=== PATIENT | female | born 1945 | race Caucasian/White ===

== ENCOUNTER 2019-08-23 21:39 | Emergency (ER) | payer MEDICARE, OTHER ==
[~2019-08-23] VITALS: Ht 152.4 cm; Wt 90.9 kg
[~2019-08-23 21:39] MED LIST: ASPI-1265 PO; ATOR40TA PO; BACL10TA PO; CALC-212 PO; CHOL100017 PO; ESCI20TA45 PO; FENT1PAT13 TP; HYDR1LIQ5 PO; LISI40TA4 PO; PROM12.512 PO
[2019-08-23] MEDS ORDERED: HYDROcodone/acetaminophen 10/325mg tab PO ONE (22:05)
[2019-08-23] MEDS ORDERED: ondansetron 4mg rapidly disintigrating tab PO ONE (22:05)
[2019-08-23] MEDS ORDERED: HYDR-4353 PO (22:16)
[2019-08-23] MEDS ORDERED: ONDA4TAB6 PO (22:16)
[2019-08-23 23:03] VITALS: BP 172/82
== END 2019-08-23 23:06 | disposition home or self-care (01) ==
LOC: ER 21:40
DX: S42.401A Unspecified fracture of lower end of right humerus, initial encounter for closed fracture (principal); Z86.14 Personal history of Methicillin resistant Staphylococcus aureus infection; Z88.8 Allergy status to other drugs, medicaments and biological substances; Z79.82 Long term (current) use of aspirin; Z79.899 Other long term (current) drug therapy; W18.30XA Fall on same level, unspecified, initial encounter; Y93.89 Activity, other specified; Y92.89 Other specified places as the place of occurrence of the external cause; Y99.8 Other external cause status
CPT/HCPCS: 29105; 73030; 99284

== ENCOUNTER 2019-09-02 06:56 | Inpatient (IN) | payer MEDICARE, OTHER ==
--- NOTE | 2019-08-30 09:55 | NUR ---
PT AND BOTH PRE-OP"D DUE TO PT'S FORGETFULNESS. VERBAL COVID SCREEN DONE WITH BOTH AND THEY WERE NEGATIVE TO ALL QUESTIONS. INSTRUCTED BOTH TO QUARANTINE MUCH POSSIBLE UNTIL SURG. WEAR A MASK, WASH HANDS AND SOCIAL DISTANCE IF NEED TO GO OUT
[2019-08-30 09:56] LABS: BASOPHILS % (AUTO) 0.5 % (0-1); EOSINOPHILS # (AUTO) 0.3 X10'3 (0-0.9); EOSINOPHILS % (AUTO) 4.5 % (0-6); LYMPHOCYTES # (AUTO) 1.6 X10'3 (1.1-4.8); LYMPHOCYTES % (AUTO) 20.6 % (21-51); MEAN CORPUSCULAR HEMOGLOBIN 31.7 PG (27.0-31.0); MEAN CORPUSCULAR HGB CONC 33.3 g/dL (33.0-36.5); MEAN CORPUSCULAR VOLUME 95.1 FL (78-98); MONOCYTES # (AUTO) 0.7 X10'3 (0-0.9); MONOCYTES % (AUTO) 9.2 % (2-12); NEUTROPHILS # (AUTO) 4.9 X10'3 (1.8-7.7); NEUTROPHILS % (AUTO) 65.2 % (42-75); PRE OP HEMATOCRIT 33.5 % (35.0-45.0); PRE OP HEMOGLOBIN 11.2 g/dL (12.0-16.0); PRE OP PLATELET COUNT 229 X10'3 (140-440); RED BLOOD COUNT 3.53 X10'6 (4.20-5.60); RED CELL DISTRIBUTION WIDTH 15.3 % (11.5-14.5)
[2019-08-30 10:18] LABS: PRE OP PROTIME 9.9 SECONDS (9.0-12.0)
[2019-08-30 10:34] LABS: ALBUMIN 2.8 G/DL (3.4-5.0); ALBUMIN/GLOBULIN RATIO 0.8 (1.1-1.5); ALKALINE PHOSPHATASE 99 IU/L (46-116); BLOOD UREA NITROGEN 23 MG/DL (7-18); BUN/CREATININE RATIO 24.5 (6.6-38.0); CALCIUM 8.6 MG/DL (8.5-10.1); CHLORIDE 103 MMOL/L (99-107); CREATININE 0.94 MG/DL (0.40-0.90); PRE OP ALT 28 U/L (30-65); PRE OP ANION GAP 2 (8-16); PRE OP AST 21 U/L (10-37); PRE OP BILIRUB, TOTAL 0.4 MG/DL (0.0-1.0); PRE OP GLUCOSE 106 MG/DL (70-104); PRE OP POTASSIUM 4.1 MMOL/L (3.4-5.1); PRE OP SODIUM 139 MMOL/L (135-145); TOTAL CARBON DIOXIDE 34.3 MMOL/L (24-32); TOTAL PROTEIN 6.5 G/DL (6.4-8.2); eGFR 59 ML/MIN
[~2019-09-02] VITALS: Ht 152.4 cm; Wt 96.0 kg
[2019-09-02] VITALS (22 sets, daily range): BP systolic 116–178; BP diastolic 56–157
[~2019-09-02 06:56] MED LIST changes: -CALC-212 PO; +FENT1PAT11 TOP; +FREM225S SQ; -HYDR1LIQ5 PO; +HYDR8TAB18 PO; +KEN0.1O TOP; -LISI40TA4 PO; +OMEP40CA13 PO; +ONDA4TAB6 PO; +SUMA100T16 PO; +ceFAZolin 2gm in dextrose, iso 50 ML IV ONE; +famotidine 20mg tablet PO ONE; +ringers solution, lacted 1,000 ML IV SCH; +tranexamic acid inj. 900 MG in normal saline 100ml IV soln 91 ML IV ONE; +vancomycin 1,500 MG in NS 300ml IV soln IV ONE
--- NOTE | 2019-09-02 08:00 | NUR ---
PT C/O LEFT KNEE/CALF PAIN. BRUISE NOTED ON LEFT KNEE WITH LEFT KNEE/CALF SWELLING AND TENDERNESS. SCD NOT APPLIED TO LEFT LE AT THIS TIME R/T CALF PAIN/SWELLING, SENT WITH PT TO THE OR. DR TOBIN NOTIFIED BY RN, NO NEW ORDERS. Addendum: 09/02/19 at 1329 by Marjan Pryor RN Amended: Links added.
[2019-09-02] MEDS ORDERED: glycopyrrolate 0.2mg/ml inj ONE (09:02)
[2019-09-02] MEDS ORDERED: sevoflurane 250ml liquid IH ONE (09:02)
[2019-09-02] MEDS ORDERED: ePHEDrine 50MG/ML INJ. ONE (09:02)
[2019-09-02] MEDS ORDERED: neostigmine methylsulfate 1 MG/ML 10ml vial ONE (09:02)
[2019-09-02] MEDS ORDERED: midazolam 2 mg/2 ml injection ONE (09:37)
[2019-09-02] MEDS ORDERED: fentaNYL/PF 50MCG/1 ML 2ML syringe ONE ×2 (09:37→10:58)
[2019-09-02] MEDS ORDERED: ROPIVAcaine 0.5% (5mg/ml) 30ml vial ONE ×2 (10:53→11:54)
[2019-09-02] MEDS ORDERED: LIDOcaine 1%/PF 5ML 10 MG/ML VIAL ONE (11:54)
[2019-09-02] MEDS ORDERED: ondansetron/PF 4mg/2ml inj ONE (11:54)
[2019-09-02] MEDS ORDERED: dexamethasone sod phosphate 4mg/ml inj. ONE (11:54)
[2019-09-02] MEDS ORDERED: propofol inj 20 ML IV ONE (11:54)
[2019-09-02] MEDS ORDERED: ketamine 50mg/5ml syringe ONE (11:55)
[2019-09-02] MEDS ORDERED: ondansetron/PF 4mg/2ml inj IV PRN ×2 (12:05→12:35)
[2019-09-02] MEDS ORDERED: HYDROmorphone inj. 0.5 MG/0.5 ML DISP.SYRIN IV PRN ×2 (12:05→12:35)
[2019-09-02] MEDS ORDERED: ringers solution, lacted 1,000 ML IV SCH (12:05)
--- NOTE | 2019-09-02 12:17 | NUR ---
Received from OR via ortho bed, accompanied by Anesthesiologist DR Schmidt and report given by Anesthesiolgist. PATIENT WAKING UP, extubated by MD at bedside, too sleepy to answer questions but all V/S WNL, O2 sats 97% mask to 10L O2, NEUROVASCULAR CHECKS INTACT, 20G left forearm, island dressing shoulder wrap and cold pack to right shoulder. SCDs on no aquino cath. IVF LR at 100cc/hr.
[2019-09-02] MEDS ORDERED: potassium cl 20mEq in 1/2 NS 1,000 ML IV SCH (12:34)
[2019-09-02] MEDS ORDERED: magnesium hydroxide 30ml (MOM) UD suspension PO PRN (12:35)
[2019-09-02] MEDS ORDERED: bisacodyl 10mg suppository rectal RC PRN (12:35)
[2019-09-02] MEDS ORDERED: oxyCODONE IR 5mg (immed. release) tablet PO PRN (12:35)
[2019-09-02] MEDS ORDERED: HYDROmorphone 2mg tablet PO PRN (12:35)
[2019-09-02] MEDS ORDERED: baclofen 10mg tablet PO PRN (12:35)
[2019-09-02] MEDS ORDERED: acetaminophen 325mg tablet PO PRN (12:35)
[2019-09-02] MEDS ORDERED: diphenhydrAMINE 25mg capsule PO PRN ×2 (12:35)
[2019-09-02] MEDS ORDERED: fentaNYL 75 MCG/hour patch.TD72 TD SCH ×2 (12:35→13:06)
[2019-09-02] MEDS ORDERED: hydrALAZINE 20mg/ml inj. IV ONE (12:45)
[2019-09-02] MEDS ORDERED: acetaminophen 1,000mg/100ml IV 100 ML IV ONE (12:45)
[2019-09-02] MEDS ORDERED: labetalol 20mg/4ml (5mg/ml) syringe IV ONE (12:45)
[2019-09-02] MEDS: morphine 2 MG/ML inj. syringe IV PRN ×3 (12:46→13:23)
[2019-09-02] MEDS: HYDROmorphone inj. 0.5 MG/0.5 ML DISP.SYRIN IV PRN ×3 (12:50→13:35)
[2019-09-02] MEDS ORDERED: fentaNYL/PF 50MCG/1 ML 2ML syringe IV ONE (13:20)
[2019-09-02] MEDS ORDERED: ondansetron 4mg rapidly disintigrating tab PO PRN (14:00)
--- NOTE | 2019-09-02 14:01 | NUR ---
Patient in room PAS IN 900. I have received report from Diana ALEGRIA and had the opportunity to ask questions and assume patient care.
--- NOTE | 2019-09-02 14:17 | NUR ---
Report called to receiving nurse. Transferred via ortho bed. Belongings sent with patient in one bag, dentures upper and lower in mouth and glasses on. Special Issues communicated to receiving nurse Bethanie RN on phone. Pt voided prior to transfer. Post op VS stable in room,. BLL eula light within reach chart at bedside. Charge nurse informed of PAS nurse's conversation with Dr Geller regarding bruised knee swelling and tenderness to left lower extrem but no new orders received. SCD only on right leg.
[2019-09-02] MEDS: proMETHazine 25mg tablet PO SCH ×3 (14:56→21:04)
[2019-09-02] MEDS: oxyCODONE IR 5mg (immed. release) tablet PO PRN (14:57)
[2019-09-02] MEDS: acetaminophen 325mg tablet PO SCH ×3 (14:57→21:03)
[2019-09-02] MEDS ORDERED: tranexamic acid inj. 900 MG in normal saline 100ml IV soln 100 ML IV ONE (15:30)
[2019-09-02] MEDS: ceFAZolin 1GM/D5W- ADD-VANTAGE 50 ML IV SCH ×2 (15:50→23:46)
[2019-09-02] MEDS: HYDROmorphone 1 mg/ml syringe IV PRN (16:15)
--- NOTE | 2019-09-02 18:48 | NUR ---
Problems reprioritized. Patient report given, questions answered & plan of care reviewed with Katerine ALEGRIA.
[2019-09-02] MEDS: ESCITALOPRAM OXALATE 5 MG TABLET PO SCH ×2 (20:00→21:03)
[2019-09-02] MEDS ORDERED: vancomycin/NS 1 GM ADD-VANTAGE 250 ML IV SCH (20:00)
[2019-09-02] MEDS: nystatin 15 GM powder TP SCH ×2 (20:36→21:00)
[2019-09-02] MEDS: sennosides 8.6mg tablet PO SCH ×2 (20:36→21:04)
[2019-09-02] MEDS: atorvastatin 20mg tablet PO SCH ×2 (20:36→21:03)
[2019-09-03] MEDS: oxyCODONE IR 5mg (immed. release) tablet PO PRN ×2 (00:33→09:18)
[2019-09-03 02:00] VITALS: BP 136/63
[2019-09-03] MEDS: acetaminophen 325mg tablet PO SCH ×2 (02:00→08:00)
[2019-09-03] MEDS: proMETHazine 25mg tablet PO SCH ×2 (02:00→09:19)
[2019-09-03 05:54] LABS: BASOPHILS % (AUTO) 0.2 % (0-1); EOSINOPHILS % (AUTO) 0.1 % (0-6); HEMATOCRIT 30.9 % (35.0-45.0); HEMOGLOBIN 10.3 g/dl (12.0-16.0); LYMPHOCYTES # (AUTO) 1.2 X10'3 (1.1-4.8); MEAN CORPUSCULAR HEMOGLOBIN 31.7 PG (27.0-31.0); MEAN CORPUSCULAR HGB CONC 33.4 g/dL (33.0-36.5); MEAN CORPUSCULAR VOLUME 94.8 FL (78-98); MEAN PLATELET VOLUME 7.1 FL (7.4-10.4); MONOCYTES # (AUTO) 0.7 X10'3 (0-0.9); MONOCYTES % (AUTO) 7.4 % (2-12); NEUTROPHILS # (AUTO) 7.4 X10'3 (1.8-7.7); NEUTROPHILS % (AUTO) 79.3 % (42-75); PLATELET COUNT 228 X10'3 (140-440); RED BLOOD COUNT 3.26 X10'6 (4.20-5.60); RED CELL DISTRIBUTION WIDTH 15.4 % (11.5-14.5); WHITE BLOOD COUNT 9.3 X10'3 (4.5-11.0)
[2019-09-03 05:55] LABS: ANION GAP 6 (8-16); CHLORIDE 106 MMOL/L (99-107); POTASSIUM 4.1 MMOL/L (3.5-5.1); SODIUM 139 MMOL/L (135-145); TOTAL CARBON DIOXIDE 26.8 MMOL/L (24-32)
--- NOTE | 2019-09-03 06:09 | NUR ---
Patient in room ORTHO 4012. I have received report from Katerine ALEGRIA and had the opportunity to ask questions and assume patient care.
[2019-09-03 06:10] VITALS: BP 151/71
--- NOTE | 2019-09-03 06:23 | NUR ---
REport given to sparkle Kovacs.
[2019-09-03] MEDS ORDERED: HYDR-4353 PO (06:41)
[2019-09-03] MEDS: HYDROmorphone 1 mg/ml syringe IV PRN (06:49)
[2019-09-03] MEDS ORDERED: pantoprazole 40mg Tablet.DR PO SCH (07:30)
[2019-09-03] MEDS: nystatin 15 GM powder TP SCH (08:00)
[2019-09-03] MEDS ORDERED: vitamin D (cholecalciferol) 1,000 unit tablet PO SCH (08:00)
[2019-09-03] MEDS ORDERED: aspirin 325mg tablet PO SCH (08:30)
[2019-09-03] MEDS: ESCITALOPRAM OXALATE 5 MG TABLET PO SCH (09:18)
[2019-09-03 10:00] VITALS: BP 150/65
--- NOTE | 2019-09-03 10:45 | NUR ---
Patient discharged home at this time. Patient was provided ice packs and island dressings. She was taught all discharge instructions and had paper copy for norco prescription.
[2019-09-04] MEDS ORDERED: fentaNYL 75 MCG/hour patch.TD72 TD SCH (08:00)
[2019-09-04] MEDS ORDERED: acetaminophen 325mg tablet PO PRN (12:35)
== END 2019-09-03 10:35 | disposition home or self-care (01) | DRG 493 ==
LOC: UNDOADMIN 06:56 → PAS IN 06:56 → EDSTATUS 09:45 → PAS IN 12:34 → ORTHO 4S 14:15
PROVIDERS: ADMIT Orthopaedic Surgery; ATTEND Orthopaedic Surgery
PROC: 3E0T3BZ Introduction of Anesthetic Agent into Peripheral Nerves and Plexi, Percutaneous Approach (ICD-10-PCS; 2019-09-02)
PROC: 0PHC04Z Insertion of Internal Fixation Device into Right Humeral Head, Open Approach (ICD-10-PCS; principal; 2019-09-02 09:52)
DX: S42.211A Unspecified displaced fracture of surgical neck of right humerus, initial encounter for closed fracture (principal); D62 Acute posthemorrhagic anemia; S42.241A 4-part fracture of surgical neck of right humerus, initial encounter for closed fracture; G43.909 Migraine, unspecified, not intractable, without status migrainosus; M54.9 Dorsalgia, unspecified; F32.9 Major depressive disorder, single episode, unspecified; W18.39XA Other fall on same level, initial encounter; E78.5 Hyperlipidemia, unspecified; G89.29 Other chronic pain; K21.9 Gastro-esophageal reflux disease without esophagitis; I10 Essential (primary) hypertension; E66.9 Obesity, unspecified; Z88.8 Allergy status to other drugs, medicaments and biological substances; Z79.899 Other long term (current) drug therapy; Z79.82 Long term (current) use of aspirin; Y93.89 Activity, other specified; Y92.89 Other specified places as the place of occurrence of the external cause; Y99.8 Other external cause status
CPT/HCPCS: 36415; 73060; 73560; 73590; 76000; 80051; 80053; 82948; 85025; 85610; 85730; 87081; 93005; 97110; 97116; 97161; A4565; A4618; A6402; A7000; C1713; G0378; J0131; J0690; J1100; J1170; J2250; J2270; J2405; J2704; J2710; J2795; J3010; J3370; J3490; J7040; J7120; Q0169

== ENCOUNTER 2020-01-11 14:42 | Emergency (ER) | payer MEDICARE, OTHER ==
[~2020-01-11] VITALS: Ht 152.4 cm; Wt 95.0 kg
[~2020-01-11 14:42] MED LIST changes: -ceFAZolin 2gm in dextrose, iso 50 ML IV ONE; -famotidine 20mg tablet PO ONE; -ringers solution, lacted 1,000 ML IV SCH; -tranexamic acid inj. 900 MG in normal saline 100ml IV soln 91 ML IV ONE; -vancomycin 1,500 MG in NS 300ml IV soln IV ONE
[2020-01-11 15:32] VITALS: BP 164/70
== END 2020-01-11 15:42 | disposition home or self-care (01) ==
LOC: ER 14:42
DX: R05 Cough (principal); Z20.828 Contact with and (suspected) exposure to other viral communicable diseases; J02.9 Acute pharyngitis, unspecified; G43.909 Migraine, unspecified, not intractable, without status migrainosus; G89.29 Other chronic pain; Z98.890 Other specified postprocedural states; Z86.14 Personal history of Methicillin resistant Staphylococcus aureus infection; Z88.8 Allergy status to other drugs, medicaments and biological substances; Z79.82 Long term (current) use of aspirin; Z79.899 Other long term (current) drug therapy
CPT/HCPCS: 99281

== ENCOUNTER 2024-01-11 08:22 | Inpatient (IN) | payer BC, MEDICARE, OTHER ==
[2024-01-11] VITALS (19 sets, daily range): BP systolic 103–167; BP diastolic 50–99; PULSE 53–77; RESP 0–18; TEMP 97.4–98.1; O2SAT 90–99
[~2024-01-11] VITALS: Ht 152.4 cm; Wt 96.3 kg
[2024-01-11] MEDS: ceFAZolin 2gm in dextrose, iso 50 ML IV ONE (05:30)
[~2024-01-11 08:22] MED LIST changes: +ARIP5TAB53 PO; -ASPI-1265 PO; +CEPH500C2 PO; -CHOL100017 PO; +ESCI20TA39 PO; -ESCI20TA45 PO; -FENT1PAT13 TP; -FREM225S SQ; +GABA-530 PO; -KEN0.1O TOP; -OMEP40CA13 PO; +OMEP40CA21 PO; -ONDA4TAB6 PO; -PROM12.512 PO; +PROM25TA14 PO; -SUMA100T16 PO
[2024-01-11] MEDS ORDERED: bacitracin 15gm ointment TP ONE (08:51)
[2024-01-11] MEDS ORDERED: BUPIVAcaine 2.5mg/ml inj 50ml vial (contains preservative) ONE (08:52)
[2024-01-11] MEDS ORDERED: ASPI-1071 PO (09:28)
[2024-01-11] MEDS: famotidine 20mg tablet PO ONE (09:54)
[2024-01-11] MEDS: ringers solution, lacted 1,000 ML IV SCH (09:55)
[2024-01-11 10:01] LABS: BASOPHILS % (AUTO) 0.6 % (0-1); EOSINOPHILS # (AUTO) 0.2 X10'3 (0-0.9); EOSINOPHILS % (AUTO) 2.9 % (0-6); HEMATOCRIT 36.4 % (35.0-45.0); LYMPHOCYTES # (AUTO) 1.5 X10'3 (1.1-4.8); MEAN CORPUSCULAR HEMOGLOBIN 30.2 PG (27.0-31.0); MEAN CORPUSCULAR HGB CONC 33.1 g/dL (33.0-36.5); MEAN CORPUSCULAR VOLUME 91.2 FL (78-98); MEAN PLATELET VOLUME 7.4 FL (7.4-10.4); MONOCYTES # (AUTO) 0.5 X10'3 (0-0.9); MONOCYTES % (AUTO) 9.8 % (2-12); NEUTROPHILS % (AUTO) 57.7 % (42-75); PLATELET COUNT 226 X10'3 (140-440); RED BLOOD COUNT 3.99 X10'6 (4.20-5.60); WHITE BLOOD COUNT 5.2 X10'3 (4.5-11.0)
[2024-01-11 10:16] LABS: ALANINE AMINOTRANSFERASE 20 U/L (12-78); ALBUMIN 2.9 G/DL (3.4-5.0); ALBUMIN/GLOBULIN RATIO 0.7 (1.1-1.5); ALKALINE PHOSPHATASE 100 IU/L (46-116); ANION GAP 7 (8-16); ASPARTATE AMINO TRANSFERASE 16 U/L (10-37); BILIRUBIN,TOTAL 0.6 MG/DL (0.1-1.0); BLOOD UREA NITROGEN 22 MG/DL (7-18); BUN/CREATININE RATIO 26.8 (10.0-20.0); CALCIUM 9.1 MG/DL (8.5-10.1); CHLORIDE 105 MMOL/L (99-107); CREATININE 0.82 MG/DL (0.40-0.90); GLUCOSE 92 MG/DL (70-104); SODIUM 141 MMOL/L (135-145); TOTAL CARBON DIOXIDE 29.1 MMOL/L (24-32); TOTAL PROTEIN 6.9 G/DL (6.4-8.2); eCRCL 42 ML/MIN; eGFR 68 ML/MIN
[2024-01-11 11:04] LABS: BILIRUBIN,URINE NEGATIVE (Neg); CLARITY,URINE SLIGHTLY CLOUDY (Clear); COLOR,URINE YELLOW (Yellow); GLUCOSE, URINE NEGATIVE (Neg); KETONES,URINE NEGATIVE (Neg); LEUKOCYTE ESTERASE ,URINE TRACE (Neg); NITRITES, URINE NEGATIVE (Neg); OCCULT BLOOD,URINE NEGATIVE (Neg); PH,URINE 6.5 (4.8-8.0); PROTEIN,URINE NEGATIVE (Neg)
[2024-01-11 11:09] LABS: UA COLLECTION TYPE VOIDED
[2024-01-11 11:10] LABS: MUCUS STRANDS FEW /LPF (Neg); SQUAMOUS EPITHELIAL CELL,UR MANY /LPF (FEW)
[2024-01-11 11:11] LABS: RBC,URINE 0-2 /HPF (0-2); TRANSITIONAL EPI CELLS,URINE FEW /HPF
[2024-01-11 11:12] LABS: BACTERIA,URINE FEW /HPF (Neg)
[2024-01-11] MEDS ORDERED: fentaNYL/PF 50MCG/1 ML 2ML syringe ONE (11:44)
[2024-01-11] MEDS ORDERED: midazolam 1 mg/ML 2ml injection ONE (11:44)
[2024-01-11] MEDS ORDERED: sevoflurane 250ml liquid IH ONE (11:50)
[2024-01-11] MEDS ORDERED: ROPIVAcaine 0.5% (5mg/ml) 30ml vial ONE (12:47)
[2024-01-11] MEDS ORDERED: 0.9 % SODIUM CHLORIDE 10 ML VIAL ONE ×2 (12:47)
[2024-01-11] MEDS ORDERED: dexamethasone sod phosphate 4mg/ml inj. ONE (12:47)
[2024-01-11] MEDS ORDERED: LIDOcaine 2% (20mg/ml) 5ml vial ONE (12:47)
[2024-01-11] MEDS ORDERED: propofol inj 20 ML IV ONE (12:47)
[2024-01-11] MEDS ORDERED: ondansetron/PF 4mg/2ml inj ONE (12:47)
[2024-01-11] MEDS ORDERED: ringers solution, lacted 1,000 ML IV SCH (14:05)
[2024-01-11] MEDS ORDERED: proCHLORperazine 10 MG/2 ml inj IV PRN (14:05)
[2024-01-11] MEDS ORDERED: hydrALAZINE 20mg/ml inj. IV PRN (14:05)
[2024-01-11] MEDS ORDERED: morphine 4 MG/ML inj SYRINge IV PRN (14:05)
[2024-01-11] MEDS ORDERED: morphine 2 MG/ML inj. syringe IV PRN (14:05)
[2024-01-11] MEDS ORDERED: ondansetron/PF 4mg/2ml inj IV PRN ×2 (14:05→15:40)
[2024-01-11] MEDS ORDERED: HYDROmorphone/PF 0.2 MG/ML SYRINGE IV PRN ×2 (14:05)
[2024-01-11] MEDS ORDERED: labetalol 20mg/4ml (5mg/ml) syringe IV PRN (14:05)
[2024-01-11] MEDS ORDERED: meperidine/PF 25mg/ml syringe IV PRN (14:05)
[2024-01-11] MEDS ORDERED: FENTANYL 75 MCG TOP PRN (15:23)
[2024-01-11] MEDS ORDERED: proMETHazine 25mg tablet PO PRN (15:25)
[2024-01-11] MEDS: cephalexin 500mg capsule PO SCH (17:20)
[2024-01-11] MEDS: gabapentin 100mg capsule PO SCH (20:32)
[2024-01-11] MEDS: baclofen 10mg tablet PO PRN (20:33)
[2024-01-11] MEDS: ESCITALOPRAM 10 mg tablet 10 MG TABLET PO SCH (20:33)
[2024-01-12 06:00] VITALS: BP 141/63; PULSE 59; RESP 18; TEMP 98.1; O2SAT 97
[2024-01-12] MEDS: aspirin 81mg, enteric-coated 1 TAB TABLET.DR PO SCH (07:35)
[2024-01-12] MEDS: atorvastatin 20mg tablet PO SCH (07:35)
[2024-01-12] MEDS: HYDROmorphone 2mg tablet PO PRN (07:37)
[2024-01-12 08:00] VITALS: RESP 16; O2SAT 96
[2024-01-12 10:00] VITALS: BP 133/59; PULSE 59; RESP 18; TEMP 97.5; O2SAT 94
[2024-01-12] MEDS ORDERED: acetaminophen 325mg tablet PO PRN (10:25)
[2024-01-12] MEDS ORDERED: ondansetron/PF 4mg/2ml inj IV PRN (10:25)
[2024-01-12] MEDS ORDERED: mag hydrox/Alum hydrox/simeth 30ml oral suspension PO PRN (10:25)
[2024-01-12] MEDS ORDERED: HYDROcodone/acetaminophen 5mg/325mg tablet PO PRN (10:25)
[2024-01-12] MEDS ORDERED: HYDROcodone/acetaminophen 10/325mg tab PO PRN (10:25)
[2024-01-12] MEDS: fentaNYL 75 MCG/hour patch.TD72 TD SCH (12:13)
[2024-01-12] MEDS: aripiprazole 5mg tablet PO SCH (12:14)
[2024-01-12] MEDS: enoxaparin 30mg/0.3ml syringe SUBCUT SCH (12:40)
[2024-01-12 18:00] VITALS: BP 130/56; PULSE 61; RESP 20; TEMP 98; O2SAT 94
[2024-01-12] MEDS: docusate sod 100mg capsule PO SCH (20:10)
[2024-01-12] MEDS: magnesium hydroxide 30ml (MOM) UD suspension PO PRN (20:22)
[2024-01-12 22:00] VITALS: BP 127/61; PULSE 66; RESP 16; TEMP 97.9; O2SAT 92
[2024-01-13] MEDS: acetaminophen 1,000mg/100ml IV 100 ML IV ONE (01:15)
[2024-01-13 06:00] VITALS: BP 157/61; PULSE 65; RESP 16; TEMP 98.6; O2SAT 92
[2024-01-13 08:00] VITALS: RESP 16; O2SAT 92
[2024-01-13 08:44] LABS: BASOPHILS % (AUTO) 0.4 % (0-1); EOSINOPHILS % (AUTO) 0.2 % (0-6); HEMATOCRIT 41.6 % (35.0-45.0); LYMPHOCYTES # (AUTO) 1.9 X10'3 (1.1-4.8); LYMPHOCYTES % (AUTO) 19.1 % (21-51); MEAN CORPUSCULAR HEMOGLOBIN 30.8 PG (27.0-31.0); MEAN CORPUSCULAR HGB CONC 33.7 g/dL (33.0-36.5); MEAN CORPUSCULAR VOLUME 91.6 FL (78-98); MEAN PLATELET VOLUME 7.8 FL (7.4-10.4); MONOCYTES # (AUTO) 0.8 X10'3 (0-0.9); MONOCYTES % (AUTO) 8.5 % (2-12); NEUTROPHILS # (AUTO) 7.1 X10'3 (1.8-7.7); NEUTROPHILS % (AUTO) 71.8 % (42-75); PLATELET COUNT 270 X10'3 (140-440); RED BLOOD COUNT 4.54 X10'6 (4.20-5.60); RED CELL DISTRIBUTION WIDTH 16.7 % (11.5-14.5); WHITE BLOOD COUNT 9.9 X10'3 (4.5-11.0)
[2024-01-13 08:57] LABS: ALBUMIN 3.2 G/DL (3.4-5.0); ANION GAP 11 (8-16); BLOOD UREA NITROGEN 26 MG/DL (7-18); CALCIUM 9.1 MG/DL (8.5-10.1); CHLORIDE 102 MMOL/L (99-107); CREATININE 0.93 MG/DL (0.40-0.90); GLUCOSE 122 MG/DL (70-104); SODIUM 140 MMOL/L (135-145); TOTAL CARBON DIOXIDE 27.4 MMOL/L (24-32); eCRCL 37 ML/MIN; eGFR 59 ML/MIN
[2024-01-13 10:00] VITALS: BP 111/38; PULSE 61; RESP 22; TEMP 97.1; O2SAT 94
[2024-01-13] MEDS ORDERED: naloxone 0.4 mg/ml inj IV PRN (11:00)
[2024-01-13] MEDS: magnesium hydroxide 30ml (MOM) UD suspension PO ONE (14:53)
[2024-01-13 18:00] VITALS: BP 144/74; PULSE 63; RESP 16; TEMP 97.7; O2SAT 95
[2024-01-13] MEDS: polyethylene glycol 3350 17gm powd pack PO SCH (20:14)
[2024-01-13 22:00] VITALS: BP 151/71; PULSE 67; RESP 18; TEMP 98.4; O2SAT 97
[2024-01-14 06:00] VITALS: BP 118/59; PULSE 65; RESP 18; TEMP 97.8; O2SAT 92
[2024-01-14 08:10] VITALS: RESP 18
[2024-01-14 09:41] LABS: BASOPHILS % (AUTO) 0.3 % (0-1); EOSINOPHILS # (AUTO) 0.2 X10'3 (0-0.9); EOSINOPHILS % (AUTO) 2.2 % (0-6); HEMATOCRIT 38.5 % (35.0-45.0); HEMOGLOBIN 12.8 g/dl (12.0-16.0); LYMPHOCYTES # (AUTO) 2.3 X10'3 (1.1-4.8); LYMPHOCYTES % (AUTO) 30.2 % (21-51); MEAN CORPUSCULAR HEMOGLOBIN 30.4 PG (27.0-31.0); MEAN CORPUSCULAR HGB CONC 33.3 g/dL (33.0-36.5); MEAN CORPUSCULAR VOLUME 91.4 FL (78-98); MEAN PLATELET VOLUME 7.3 FL (7.4-10.4); MONOCYTES # (AUTO) 0.7 X10'3 (0-0.9); MONOCYTES % (AUTO) 9.3 % (2-12); NEUTROPHILS # (AUTO) 4.3 X10'3 (1.8-7.7); PLATELET COUNT 216 X10'3 (140-440); RED BLOOD COUNT 4.21 X10'6 (4.20-5.60); RED CELL DISTRIBUTION WIDTH 16.1 % (11.5-14.5); WHITE BLOOD COUNT 7.5 X10'3 (4.5-11.0)
[2024-01-14 09:44] LABS: ALBUMIN 2.8 G/DL (3.4-5.0); ANION GAP 6 (8-16); BLOOD UREA NITROGEN 26 MG/DL (7-18); BUN/CREATININE RATIO 28.3 (10.0-20.0); CALCIUM 8.7 MG/DL (8.5-10.1); CHLORIDE 101 MMOL/L (99-107); CREATININE 0.92 MG/DL (0.40-0.90); GLUCOSE 159 MG/DL (70-104); SODIUM 137 MMOL/L (135-145); TOTAL CARBON DIOXIDE 30.3 MMOL/L (24-32); eCRCL 37 ML/MIN; eGFR 59 ML/MIN
[2024-01-14 11:00] VITALS: BP 117/64; PULSE 66; RESP 16; TEMP 97.7; O2SAT 96
[2024-01-14] MEDS: bisacodyl 10mg suppository rectal RC PRN (14:02)
[2024-01-14] MEDS ORDERED: sodium polystyrene sulfonate ENEMA 30gm/120ml RC ONE (14:15)
[2024-01-14] MEDS: mineral oil 133ml enema RC ONE (15:04)
[2024-01-14] MEDS: lactulose 20gm/30ml cup PO SCH (19:25)
[2024-01-14 20:00] VITALS: RESP 18; O2SAT 93
[2024-01-15 06:32] LABS: BASOPHILS % (AUTO) 0.5 % (0-1); EOSINOPHILS # (AUTO) 0.2 X10'3 (0-0.9); EOSINOPHILS % (AUTO) 2.4 % (0-6); HEMATOCRIT 37.4 % (35.0-45.0); HEMOGLOBIN 12.2 g/dl (12.0-16.0); LYMPHOCYTES # (AUTO) 2.3 X10'3 (1.1-4.8); MEAN CORPUSCULAR HEMOGLOBIN 30.3 PG (27.0-31.0); MEAN CORPUSCULAR HGB CONC 32.7 g/dL (33.0-36.5); MEAN CORPUSCULAR VOLUME 92.5 FL (78-98); MEAN PLATELET VOLUME 7.5 FL (7.4-10.4); MONOCYTES # (AUTO) 0.9 X10'3 (0-0.9); MONOCYTES % (AUTO) 11.5 % (2-12); NEUTROPHILS % (AUTO) 54.6 % (42-75); PLATELET COUNT 215 X10'3 (140-440); RED BLOOD COUNT 4.04 X10'6 (4.20-5.60); RED CELL DISTRIBUTION WIDTH 16.1 % (11.5-14.5); WHITE BLOOD COUNT 7.4 X10'3 (4.5-11.0)
[2024-01-15 06:45] LABS: ALBUMIN 2.6 G/DL (3.4-5.0); ANION GAP 7 (8-16); BLOOD UREA NITROGEN 17 MG/DL (7-18); BUN/CREATININE RATIO 22.7 (10.0-20.0); CALCIUM 8.6 MG/DL (8.5-10.1); CHLORIDE 102 MMOL/L (99-107); CREATININE 0.75 MG/DL (0.40-0.90); GLUCOSE 110 MG/DL (70-104); POTASSIUM 4.3 MMOL/L (3.5-5.1); SODIUM 139 MMOL/L (135-145); TOTAL CARBON DIOXIDE 30.5 MMOL/L (24-32); eCRCL 46 ML/MIN; eGFR 75 ML/MIN
[2024-01-15 08:30] VITALS: RESP 18
[2024-01-15 10:00] VITALS: BP 149/66; PULSE 77; RESP 18; TEMP 98; O2SAT 93
[2024-01-15 20:00] VITALS: RESP 18; O2SAT 95
[2024-01-15 22:00] VITALS: BP 143/64; PULSE 69; RESP 16; TEMP 98; O2SAT 97
[2024-01-16 06:00] VITALS: BP 121/49; PULSE 61; RESP 16; TEMP 96.9; O2SAT 95
[2024-01-16 07:01] LABS: BASOPHILS % (AUTO) 0.4 % (0-1); EOSINOPHILS # (AUTO) 0.3 X10'3 (0-0.9); EOSINOPHILS % (AUTO) 4.6 % (0-6); HEMATOCRIT 35.7 % (35.0-45.0); HEMOGLOBIN 11.7 g/dl (12.0-16.0); LYMPHOCYTES # (AUTO) 2.1 X10'3 (1.1-4.8); LYMPHOCYTES % (AUTO) 33.9 % (21-51); MEAN CORPUSCULAR HEMOGLOBIN 30.2 PG (27.0-31.0); MEAN CORPUSCULAR HGB CONC 32.8 g/dL (33.0-36.5); MEAN PLATELET VOLUME 7.7 FL (7.4-10.4); MONOCYTES # (AUTO) 0.6 X10'3 (0-0.9); MONOCYTES % (AUTO) 9.4 % (2-12); NEUTROPHILS # (AUTO) 3.2 X10'3 (1.8-7.7); NEUTROPHILS % (AUTO) 51.7 % (42-75); PLATELET COUNT 201 X10'3 (140-440); RED BLOOD COUNT 3.88 X10'6 (4.20-5.60); RED CELL DISTRIBUTION WIDTH 15.9 % (11.5-14.5); WHITE BLOOD COUNT 6.2 X10'3 (4.5-11.0)
[2024-01-16 07:17] LABS: ALBUMIN 2.5 G/DL (3.4-5.0); ANION GAP 7 (8-16); BLOOD UREA NITROGEN 18 MG/DL (7-18); BUN/CREATININE RATIO 23.7 (10.0-20.0); CALCIUM 8.2 MG/DL (8.5-10.1); CHLORIDE 101 MMOL/L (99-107); CREATININE 0.76 MG/DL (0.40-0.90); GLUCOSE 103 MG/DL (70-104); POTASSIUM 4.1 MMOL/L (3.5-5.1); SODIUM 140 MMOL/L (135-145); TOTAL CARBON DIOXIDE 32.4 MMOL/L (24-32); eCRCL 45 ML/MIN; eGFR 74 ML/MIN
[2024-01-16 08:00] VITALS: RESP 18; O2SAT 95
[2024-01-16 08:44] LABS: HEMOGLOBIN A1C 6.3 % (4.5-6.2)
[2024-01-16 12:00] VITALS: BP 128/51; PULSE 61; RESP 16; TEMP 98.3; O2SAT 95
[2024-01-16] MEDS ORDERED: gabapentin 300mg capsule PO SCH (15:22)
== END 2024-01-16 15:10 | DRG 501 ==
LOC: PRE-OP 08:22 → ORTHO 4S 10:30 → UNDOADMIN 16:06
PROVIDERS: ADMIT Podiatrist Foot & Ankle Surgery; ATTEND Podiatrist Foot & Ankle Surgery
PROC: 0L8N0ZZ Division of Right Lower Leg Tendon, Open Approach (ICD-10-PCS; 2024-01-11)
PROC: 0LSN0ZZ Reposition Right Lower Leg Tendon, Open Approach (ICD-10-PCS; 2024-01-11)
PROC: 0QBL0ZZ Excision of Right Tarsal, Open Approach (ICD-10-PCS; principal; 2024-01-11 11:50)
DX: M76.61 Achilles tendinitis, right leg (principal); Z68.41 Body mass index [BMI] 40.0-44.9, adult; M92.61 Juvenile osteochondrosis of tarsus, right ankle; Z88.8 Allergy status to other drugs, medicaments and biological substances; E66.01 Morbid (severe) obesity due to excess calories; K59.09 Other constipation; Z88.5 Allergy status to narcotic agent; M62.461 Contracture of muscle, right lower leg
CPT/HCPCS: 36415; 73620; 76000; 80048; 80053; 81001; 83036; 85025; 87081; 97110; 97161; 97530; 97535; A4215; A4615; A4618; A6222; A6253; A6258; A6449; A7000; C1713; G0378; J0690; J0735; J1100; J1650; J2003; J2250; J2405; J2704; J2795; J3010; J3490; J7120